=== PATIENT | female | born 1960 | race Caucasian/White ===

== ENCOUNTER 2016-09-09 10:44 | Outpatient (CLI) | payer BC | END 2016-09-09 10:45 | disposition home or self-care (01) | DX: M20.11 Hallux valgus (acquired), right foot (principal); M19.071 Primary osteoarthritis, right ankle and foot; M25.571 Pain in right ankle and joints of right foot ==

== ENCOUNTER 2018-04-05 07:58 | Outpatient (CLI) | payer BC ==
[2018-04-05] MEDS ORDERED: IOPAMIDOL-300 100 ML VIAL ONE (08:12)
[2018-04-05] MEDS ORDERED: IOPAMIDOL-300 100 ML VIAL IVP ONE (09:47)
--- NOTE | 2018-04-05 10:31 | CT Report ---
Reason: PULMONARY NODULE Procedure Date: 04/05/2018 Accession Number: [id number] / [id number] Procedure: CT - Chest W/ CPT Code: FULL RESULT: EXAM: CT CHEST EXAM DATE: 04/05/2018 08:53 AM. CLINICAL HISTORY: Follow up pulmonary nodule. COMPARISONS: CHEST W/ 04/19/2016. TECHNIQUE: Routine helical CT imaging was performed through the chest. IV contrast: 80 mL Isovue 300. Reconstructions: Coronal and sagittal. In accordance with CT protocol optimization, one or more of the following dose reduction techniques were utilized for this exam: automated exposure control, adjustment of mA and/or KV based on patient size, or use of iterative reconstructive technique. FINDINGS: Lungs/Pleura: The irregular and spiculated left upper lobe mixed groundglass and solid lesion is 3 cm x 2.6 cm measuring along the longest points of the solid component with a surrounding groundglass halo, highly suspicious. There is questionable pleural involvement versus pleural distortion from associated scarring. No new nodules, bronchial thickening, consolidation, or edema. Pulmonary vasculature is normal. No pericardial or pleural effusion. No pneumothorax. Mediastinum: Normal. No adenopathy or masses. The heart and great vessels are normal. Bones: No aggressive osseous lesion. Visualized Abdomen: Heterogeneously partially peripherally enhancing right hepatic dome mass, essentially unchanged compared to 2016 most likely represents a hemangioma but is not fully characterized on this examination. Status post cholecystectomy. Other: A partially cystic left thyroid nodule is again seen, at least 2.6 x 2.8 cm. IMPRESSION: The suspicious mixed solid and groundglass lesion has progressed from nodule to mass by size criteria. The previous recommendation of biopsy to confirm malignancy versus immediate resection stands. This is cancer until proven otherwise. If benignity of the 2.8 cm left thyroid nodule has not been established, biopsy is warranted. CRITICAL RESULT: The findings were discussed with Sanam Chairez on 04/05/2018 at 10:05 AM. RADIA The above findings were discussed with Sanam Chairez by Dr. Isai Ceballos at 10:17 hrs on 04/05/18.
== END 2018-04-05 07:59 | disposition home or self-care (01) ==
LOC: DI 07:58
PROVIDERS: ATTEND Physician Assistant Medical
DX: C34.12 Malignant neoplasm of upper lobe, left bronchus or lung (principal); E04.1 Nontoxic single thyroid nodule
CPT/HCPCS: 71260; Q9967

== ENCOUNTER 2018-06-12 15:51 | Emergency (ER) | payer BC ==
[2018-06-12 16:23] VITALS: BP 176/89
[2018-06-12] MEDS ORDERED: PROPARACAINE 0.5% OPHTH DROPS 15 ML EACHEYE STA (17:34)
--- NOTE | 2018-06-12 18:02 | ED Physician Documentation ---
PD HPI OPHTHO - Stated complaint Stated Complaint: R EYE INJ - Chief complaint Chief Complaint: Heent - History obtained from History obtained from: Patient - History of Present Illness Timing - onset: Yesterday Timing - duration: Days Timing - details: Abrupt onset Pain level max: 5 Pain level now: 4 Location: Right Quality / character: Burning, Aching Associated symptoms: Redness, Tearing, FB sensation Contributing factors: Blunt trauma (dog nail to the R eye). No: Wears glasses, Wears contacts Similar symptoms before: Has not had sx before Recently seen: Not recently seen Review of Systems Constitutional: denies: Fever, Chills Ears: denies: Ear pain Nose: denies: Rhinorrhea / runny nose, Congestion PD PAST MEDICAL HISTORY - Past Medical History Past Medical History: Yes Cardiovascular: None Respiratory: None Endocrine/Autoimmune: Other GI: Pancreatitis : Kidney stones, Other HEENT: Other Psych: None Musculoskeletal: None Derm: Other Other Past Medical History: Lung cancer - Past Surgical History Past Surgical History: Yes General: Cholecystectomy, Other HEENT: Other - Present Medications Home Medications: Ambulatory Orders Medication Instructions Recorded Confirmed Polymyxin B/Trimeth Ophth Drop 1 drops RIGHTEYE Q3H 7 Days #1 06/12/18 [Polytrim Ophth Drops] bottle - Allergies Allergies/Adverse Reactions: Allergies Allergy/AdvReac Type Severity Reaction Status Date / Time No Known Drug Allergies Allergy Verified 09/09/14 13:31 - Social History Does the pt smoke?: No Smoking Status: Former smoker Does the pt drink ETOH?: Yes Does the pt have substance abuse?: No - POLST Patient has POLST: No PD ED PE NORMAL - Vitals Vital signs reviewed: Yes - General General: Alert and oriented X 3, No acute distress - HEENT HEENT: Moist mucous membranes, Other (R eye - scleral abrasion 5mm medial to the cornea. +fluoroscein uptake. Neg olivia sign. normal pupil) - Neck Neck: Supple, no meningeal sign - Derm Derm: Warm and dry - Neuro Neuro: Alert and oriented X 3 Results - Vitals Vitals: Vital Signs - 24 hr 06/12/18 16:00 Temperature 36.5 C Heart Rate 73 Respiratory 14 Rate Blood Pressure 176/89 H O2 Saturation 100 Oxygen O2 Source Room air PD MEDICAL DECISION MAKING - ED course Complexity details: considered differential, d/w patient ED course: Patient is a 58-year-old female with a right eye scleral abrasion. Does not wear contacts. Tdap given. Will place on ophthalmic antibiotics and follow-up with her doctor. Patient counseled regarding signs and symptoms for which I believe and urgent re-evaluation would be necessary. Patient with good understanding of and agreement to plan and is comfortable going home at this time This document was made in part using voice recognition software. While efforts are made to proofread this document, sound alike and grammatical errors may occur. Departure - Departure Disposition: 01 Home, Self Care Clinical Impression: Corneal abrasion Qualifiers: Encounter type: initial encounter Laterality: right Qualified Code(s): S05.01XA - Injury of conjunctiva and corneal abrasion without foreign body, right eye, initial encounter Condition: Good Instructions: ED Eye Injury Corneal Abrasion Follow-Up: Sanam Chairez PA-C [Primary Care Provider] - Within 1 week Prescriptions: Polymyxin B/Trimeth Ophth Drop [Polytrim Ophth Drops] 1 drops RIGHTEYE Q3H 7 Days #1 bottle Comments: Use the antibiotic drops as prescribed. Return if you worsen. Follow-up with your doctor for repeat examination to ensure it is healing correctly. Discharge Date/Time: 06/12/18 18:14
[2018-06-12] MEDS ORDERED: TETANUS/DIPHTHERIA/PERTUSSIS 0.5 ML SYRINGE IM ONE (18:05)
== END 2018-06-12 18:14 | disposition home or self-care (01) ==
LOC: ED 15:51
DX: S05.01XA Injury of conjunctiva and corneal abrasion without foreign body, right eye, initial encounter (principal); Z23 Encounter for immunization; F17.200 Nicotine dependence, unspecified, uncomplicated; W54.1XXA Struck by dog, initial encounter
CPT/HCPCS: 90471; 90715; 99283; J3490

== ENCOUNTER 2018-11-09 11:44 | Outpatient (CLI) | payer BC | END 2018-11-09 11:45 | disposition critical access hospital (66) | LOC: EMS 11:44 | PROVIDERS: ATTEND Surgery | DX: H51.8 Other specified disorders of binocular movement (principal); R53.1 Weakness | CPT/HCPCS: A0425; A0429 ==

== ENCOUNTER 2018-11-09 11:57 | Emergency (ER) | payer BC, MEDICARE ==
--- NOTE | 2018-11-09 12:43 | ED Physician Documentation ---
PD HPI FOCAL NEURO - Stated complaint Stated Complaint: POSS CVA - Chief complaint Chief Complaint: Neuro - History obtained from History obtained from: Patient - History of Present Illness Timing - onset: How many days ago (3) Timing - duration: Days (3) Timing - details: Gradual onset Severity of deficit: Mild Weakness: Hand, Left Numbness: No: Face, Arm, Hand, Leg, Foot, Right, Left Associated symptoms: Headache (mild), Seizure (today felt her eyes were stuck to the L and her L arm and hand were "cramping"). No: Nausea / vomiting Contributing factors: negative: Anticoagulated, Vascular dz, Atrial fibrillation, Prosthetic heart valve Baseline status: positive: A&OX3, ambulatory, indep - Additional information Additional information: states had lung cancer removed at [facility] in 06/25. Lobectomy performed. States she was told she is cancer free. no chemotherapy. Review of Systems Ten Systems: 10 systems reviewed and negative Constitutional: denies: Fever, Chills Nose: denies: Rhinorrhea / runny nose, Congestion GI: denies: Nausea, Vomiting, Diarrhea Skin: denies: Rash Musculoskeletal: denies: Neck pain, Back pain Neurologic: denies: Headache PD PAST MEDICAL HISTORY - Past Medical History Cardiovascular: None Respiratory: None Endocrine/Autoimmune: Other GI: Pancreatitis : Kidney stones, Other HEENT: Other Psych: None Musculoskeletal: None Derm: Other - Past Surgical History Past Surgical History: Yes General: Cholecystectomy, Other HEENT: Other - Present Medications Home Medications: Ambulatory Orders Medication Instructions Recorded Confirmed Polymyxin B/Trimeth Ophth Drop 1 drops RIGHTEYE Q3H 7 Days #1 06/12/18 [Polytrim Ophth Drops] bottle - Allergies Allergies/Adverse Reactions: Allergies Allergy/AdvReac Type Severity Reaction Status Date / Time No Known Drug Allergies Allergy Verified 09/09/14 13:31 - Social History Does the pt smoke?: No Smoking Status: Former smoker Does the pt drink ETOH?: Yes Does the pt have substance abuse?: No - POLST Patient has POLST: No PD ED PE NORMAL - Vitals Vital signs reviewed: Yes - General General: Alert and oriented X 3, No acute distress, Well developed/nourished - HEENT HEENT: PERRL, Moist mucous membranes - Neck Neck: Supple, no meningeal sign - Cardiac Cardiac: RRR, Strong equal pulses - Respiratory Respiratory: No respiratory distress, Clear bilaterally - Abdomen Abdomen: Soft, Non tender, Non distended - Derm Derm: Warm and dry, No rash - Extremities Extremities: No edema, No calf tenderness / cord - Neuro Neuro: Alert and oriented X 3, No sensory deficit, Other (focal weakness L thumb and index finger.) Eye Opening: Spontaneous Motor: Obeys Commands Verbal: Oriented GCS Score: 15 - Psych Psych: Normal mood, Normal affect NIHSS - Time Time: 12:20 - Level of Consciousness Level of consciousness: (0) Alert, Keenly responsive LOC Questions: (0) Answers both Q's correct LOC Commands: (0) Performs both correctly - Gaze Best Gaze: (0) Normal - Visual Visual: (0) No loss - Facial Palsy Facial Palsy: (0) Normal, symmetrical movement - Motor Arms (both separate) Motor Arm (right): (0) No drift Motor Arm (left): (0) No drift - Motor Legs (both separate) Motor Leg (right): (0) No drift Motor Leg (left): (0) No drift - Limb Ataxia Limb Ataxia: (0) Absent - Sensory Sensory: (0) Normal - Best Language Best Language: (0) No aphasia - Dysarthria Dysarthria: (0) Normal - Extinction and Inattention (formally neg Extinction and inattention: (0) No abnormality - Total Score/Results Total Score/Result: 0 Results - Vitals Vitals: Vital Signs - 24 hr 11/09/18 11/09/18 12:03 13:05 Temperature 36.5 C 36.8 C Heart Rate 72 73 Respiratory 16 18 Rate Blood Pressure 161/104 H 157/97 H O2 Saturation 99 99 Oxygen O2 Source Room air - EKG (time done) 1217 Rate: Rate (enter#) (72) Rhythm: NSR [place]: Normal Intervals: Normal [place] QRS: Normal Ischemia: Normal ST segments Computer interpretation: Agree with computer - Labs Labs: Laboratory Tests 11/09/18 12:37 Urine Color LT. YELLOW Urine Clarity CLEAR Urine pH 6.5 Ur Specific [place] <=1.005 Urine Protein NEGATIVE Urine Glucose (UA) NEGATIVE Urine Ketones NEGATIVE Urine Occult Blood NEGATIVE Urine Nitrite NEGATIVE Urine Bilirubin NEGATIVE Urine Urobilinogen 0.2 (NORMAL) Ur Leukocyte Esterase NEGATIVE Ur Microscopic Review NOT INDICATED Urine Culture Comments NOT INDICATED - Rads (name of study) head CT Radiology: Prelim report reviewed, EMP read contemporaneously, See rad report (1. Multiple bihemispheric mildly hyperattenuating parenchymal masses, the largest of which measures 2 cm in the right frontal lobe, associated with vasogenic edema. Pattern is consistent with metastatic disease. 2. No CT evidence of acute infarction. ) PD MEDICAL DECISION MAKING - ED course Complexity details: reviewed results, re-evaluated patient, considered differential, d/w patient, d/w building consultant ED course: 58 year old female with brain mets on non-con CT. today appears to have had a new onset partial seizure. Given keppra and decadron. Will transfer to [facility] in [place] for further care. D/w 1300 Dr. Bender, hospitalist in [place] who graciously accepts in transfer. COBRAs filled out. Patient stable. This document was made in part using voice recognition software. While efforts are made to proofread this document, sound alike and grammatical errors may occur. Departure - Departure Disposition: 02 Transfer Acute Care Hosp Clinical Impression: Brain metastasis, New onset seizure Condition: Stable
[2018-11-09] MEDS ORDERED: levETIRAcetam INJ 1,000 MG in SODIUM CHLORIDE 0.9% 100ML 100 ML IV STA (12:44)
[2018-11-09] MEDS ORDERED: SODIUM CHLORIDE 0.9% 1,000 ML IV ONE (12:44)
--- NOTE | 2018-11-09 12:44 | CT Report ---
Reason: left sided weakness Procedure Date: 11/09/2018 Accession Number: [id number] / [id number] Procedure: CT - Head W/O Stroke Protocol CPT Code: FULL RESULT: EXAM: CT HEAD EXAM DATE: 11/09/2018 12:24 PM. CLINICAL HISTORY: Left sided weakness. History of lung cancer in June status post lobectomy. COMPARISON: None. TECHNIQUE: Multiaxial CT images were obtained from the foramen magnum to the vertex. Reformats: Sagittal and coronal. IV contrast: None. In accordance with CT protocol optimization, one or more of the following dose reduction techniques were utilized for this exam: automated exposure control, adjustment of mA and/or KV based on patient size, or use of iterative reconstructive technique. FINDINGS: Parenchyma: There is a 2 cm mixed isodense and hypodense mass in the peripheral right frontal lobe, reference image 18 series 3; mass is associated with halo of vasogenic edema. There are additional mildly hyperattenuating parenchymal masses noted of the right hemisphere ranging in size from several mm up to the next largest measuring 13 mm right parafalcine, image 24, series 3. At least 7 total mildly hyperattenuating lesions are noted within the bihemispheric parenchyma. No intraparenchymal hemorrhage. No evidence midline shift, or CT findings of acute infarction. Extraaxial Spaces: Normal for age. No subdural or epidural collections identified. Ventricles: Normal in size and position. Sinuses and Orbits: Imaged paranasal sinuses, orbits, and mastoids show no significant abnormality. Bones: No evidence of fracture or calvarial defect. Other: None. IMPRESSION: 1. Multiple bihemispheric mildly hyperattenuating parenchymal masses, the largest of which measures 2 cm in the right frontal lobe, associated with vasogenic edema. Pattern is consistent with metastatic disease. 2. No CT evidence of acute infarction. RADIA The above critical test findings were discussed with Er Physician Dr. Calixto by Dr. Chay Hill at 12:35 PM on 11/09/2018.
[2018-11-09 12:54] LABS: BILIRUBIN,URINE NEGATIVE (NEGATIVE); GLUCOSE, URINE (UA) NEGATIVE (NEGATIVE); KETONES,URINE (UA) NEGATIVE (NEGATIVE); LEUKOCYTE ESTERASE, URINE NEGATIVE (NEGATIVE); NITRITE,URINE NEGATIVE (NEGATIVE); OCCULT BLOOD,URINE NEGATIVE (NEGATIVE); PH,URINE 6.5 PH (5.0-7.5); PROTEIN,URINE NEGATIVE (NEGATIVE); UROBILINOGEN,URINE 0.2 (NORMAL) E.U./dL (NORMAL)
[2018-11-09] MEDS ORDERED: DEXAMETHASONE 10 MG/ML VIAL IVP STA (12:54)
[2018-11-09 12:59] LABS: CLARITY,URINE CLEAR (CLEAR)
[2018-11-09 13:06] VITALS: BP 157/97
[2018-11-09 13:22] LABS: ALBUMIN 4.4 g/dL (3.2-5.5); ALBUMIN/GLOBULIN RATIO 1.3 (1.0-2.2); BILIRUBIN,TOTAL 0.6 mg/dL (0.2-1.0); CALCIUM 9.6 mg/dL (8.5-10.3); CREATININE 0.5 mg/dL (0.4-1.0); MAGNESIUM 2.5 mg/dL (1.7-2.8); PHOSPHORUS 3.2 mg/dL (2.5-4.6); TOTAL PROTEIN 7.7 g/dL (6.7-8.2)
[2018-11-09 13:23] LABS: BASOPHILS # (AUTO) 0.1 10^3/uL (0.0-0.1); BASOPHILS % (AUTO) 1.3 %; EOSINOPHILS # (AUTO) 0.1 10^3/uL (0.0-0.7); HGB - HEMOGLOBIN 14.3 g/dL (12.0-16.0); LYMPHOCYTES # (AUTO) 1.7 10^3/uL (1.5-3.5); LYMPHOCYTES % (AUTO) 31.6 %; MEAN CORPUSCULAR HEMOGLOBIN 30.7 pg (27.0-31.0); MEAN CORPUSCULAR HGB CONC 33.2 g/dL (32.0-36.0); MEAN CORPUSCULAR VOLUME 92.4 fL (81.0-99.0); MEAN PLATELET VOLUME 9.7 fL (7.9-10.8); MONOCYTES # (AUTO) 0.3 10^3/uL (0.0-1.0); MONOCYTES % (AUTO) 6.3 %; NEUTROPHILS # (AUTO) 3.2 10^3/uL (1.5-6.6); NEUTROPHILS % (AUTO) 59.8 %; PLT - PLATELET COUNT 215 10^3/uL (130-450); RED BLOOD COUNT 4.67 10^6/uL (4.20-5.40); RED CELL DISTRIBUTION WIDTH 13.5 % (12.0-15.0); WHITE BLOOD COUNT 5.3 x10^3/uL (4.8-10.8)
[2018-11-09 13:35] LABS: RBC MORPHOLOGY (MULTIPLE) 1+ ANISOCYTOSIS (NORMAL)
== END 2018-11-09 14:28 | disposition short-term general hospital (02) ==
LOC: EDUNIT# → EDBD → ED 11:57
DX: C79.31 Secondary malignant neoplasm of brain (principal); R56.9 Unspecified convulsions; Z85.118 Personal history of other malignant neoplasm of bronchus and lung; Z90.2 Acquired absence of lung [part of]
CPT/HCPCS: 36415; 70450; 80053; 81001; 81003; 83690; 83735; 84100; 85025; 87086; 93005; 96361; 96365; 96375; 99284; 99285

== ENCOUNTER 2018-11-09 14:28 | Outpatient (CLI) | payer BC | END 2018-11-09 14:29 | disposition short-term general hospital (02) | LOC: EMS 14:28 | PROVIDERS: ATTEND Surgery | DX: R56.9 Unspecified convulsions (principal); C79.31 Secondary malignant neoplasm of brain | CPT/HCPCS: A0425; A0426 ==

== ENCOUNTER 2018-12-19 19:57 | Emergency (ER) | payer BC ==
[2018-12-19 20:52] LABS: BASOPHILS % (AUTO) 0.7 %; EOSINOPHILS # (AUTO) 0.1 10^3/uL (0.0-0.7); EOSINOPHILS % (AUTO) 1.8 %; HGB - HEMOGLOBIN 13.8 g/dL (12.0-16.0); LYMPHOCYTES # (AUTO) 1.4 10^3/uL (1.5-3.5); LYMPHOCYTES % (AUTO) 23.6 %; MEAN CORPUSCULAR HEMOGLOBIN 30.5 pg (27.0-31.0); MEAN CORPUSCULAR HGB CONC 32.1 g/dL (32.0-36.0); MEAN CORPUSCULAR VOLUME 95.3 fL (81.0-99.0); MEAN PLATELET VOLUME 7.7 fL (7.9-10.8); MONOCYTES # (AUTO) 0.4 10^3/uL (0.0-1.0); MONOCYTES % (AUTO) 6.5 %; NEUTROPHILS % (AUTO) 67.4 %; PLT - PLATELET COUNT 250 10^3/uL (130-450); RED BLOOD COUNT 4.52 10^6/uL (4.20-5.40); RED CELL DISTRIBUTION WIDTH 15.8 % (12.0-15.0); WHITE BLOOD COUNT 5.9 x10^3/uL (4.8-10.8)
[2018-12-19] MEDS ORDERED: ACETAMINOPHEN 325 MG TABLET PO STA (21:18)
[2018-12-19 21:20] LABS: ALBUMIN 3.8 g/dL (3.2-5.5); ALBUMIN/GLOBULIN RATIO 1.5 (1.0-2.2); BILIRUBIN,TOTAL 0.7 mg/dL (0.2-1.0); CALCIUM 8.9 mg/dL (8.5-10.3); CREATININE 0.7 mg/dL (0.4-1.0); TOTAL PROTEIN 6.3 g/dL (6.7-8.2)
--- NOTE | 2018-12-19 21:48 | CT Report ---
Reason: Left upper extremity weakness, slurred speech Procedure Date: 12/19/2018 Accession Number: [id number] / [id number] Procedure: CT - HEAD WO CPT Code: FULL RESULT: EXAM: CT HEAD EXAM DATE: 12/19/2018 09:33 PM. CLINICAL HISTORY: Left upper extremity weakness, slurred speech. COMPARISON: HEAD W/O STROKE PROTOCOL 11/09/2018 12:01 PM. TECHNIQUE: Multiaxial CT images were obtained from the foramen magnum to the vertex. Reformats: Sagittal and coronal. IV contrast: None. In accordance with CT protocol optimization, one or more of the following dose reduction techniques were utilized for this exam: automated exposure control, adjustment of mA and/or KV based on patient size, or use of iterative reconstructive technique. FINDINGS: Parenchyma: Interval increase in size of a right frontal intraparenchymal lesion, measuring 3.1 cm with perilesional edema. Findings compared with prior CT dated 11/09/2018. There is mild mass-effect on adjacent parenchyma, however no midline shift. A hyperdense, likely intraparenchymal focal lesion is seen in medial high frontal lobe measuring 9 mm (image 26 and series 3), unchanged since prior. No other obvious intracranial lesion seen. Further evaluation to be considered on MRI brain. No intraparenchymal hemorrhage. No midline shift, or CT findings of infarction. Alexander-white differentiation is distinct. Extraaxial Spaces: Normal for age. No subdural or epidural collections identified. Ventricles: Normal in size and position. Sinuses and Orbits: Imaged paranasal sinuses, orbits, and mastoids show no significant abnormality. Bones: No evidence of fracture or calvarial defect. Other: None. IMPRESSION: Interval increase in size of a right frontal intraparenchymal lesion, measuring 3.1 cm with increased perilesional edema. Findings compared with prior CT dated 11/09/2018. Mild mass-effect on the parenchyma, however no midline shift. No obvious intraparenchymal hemorrhage, however mild intratumoral hemorrhage is not excluded. A second hyperdense, likely intraparenchymal focal lesion in medial right frontal lobe, without significant change. Further evaluation to be considered on MRI brain with contrast. RADIA The call report notification system was initiated by Dr. Iraida Tong at 09:39 PM on 12/19/2018. The above call report findings were discussed with Elda Arguello by Dr. Iraida Tong at 09:46 PM on 12/19/2018.
[2018-12-19] MEDS ORDERED: DEXAMETHASONE 10 MG/ML VIAL IVP STA (21:55)
--- NOTE | 2018-12-19 22:30 | ED Physician Documentation ---
PD HPI FOCAL NEURO - Stated complaint Stated Complaint: LOSSING FUNCTION OF LEFT ARM - Chief complaint Chief Complaint: Neuro - History obtained from History obtained from: Patient, Friend - History of Present Illness Timing - onset: Enter time (14:00 today) Timing - duration: Hours Timing - details: Abrupt onset Severity of deficit: Severe Weakness: Arm, Hand (weakness) Associated symptoms: Headache. No: Nausea / vomiting, Seizure, Syncope, Fall, Head injury, Chest pain, Neck pain, Back pain, Fever Contributing factors: positive: Other (Pt with known hx of metastatic lung cancer with mets to brain. Had received radiation in the past since done with that. Takes keppra and 2mg of decadron, has been tapering steroids but today had sudden worsening of her old symptoms. She had previously regained complete function of the LUE. This occurred while eating a burger, noticed she was struggling.). negative: Anticoagulated Similar symptoms before: Diagnosis, Work up / diagnostics, Treatment (received radiation, steroids, keppra) - Treatment prior to arrival Treatment prior to arrival: none Review of Systems Ten Systems: 10 systems reviewed and negative Constitutional: denies: Fever, Chills Eyes: denies: Loss of vision, Decreased vision, Photophobia Cardiac: denies: Chest pain / pressure Respiratory: denies: Dyspnea GI: denies: Nausea, Vomiting Musculoskeletal: denies: Neck pain Neurologic: reports: Focal weakness, Difficulty speaking, Headache. denies: Numbness, Near syncope, Seizure, Confused, Altered mental status, Head injury, LOC PD PAST MEDICAL HISTORY - Past Medical History Past Medical History: Yes Cardiovascular: None Respiratory: None Neuro: None, Seizure disorder Endocrine/Autoimmune: Other GI: Pancreatitis SCARRER: None : Kidney stones, Other HEENT: Other Psych: None Musculoskeletal: None Derm: Other Other Past Medical History: brain ca - Past Surgical History Past Surgical History: Yes General: Cholecystectomy, Other Neuro: Other HEENT: Other - Present Medications Home Medications: Ambulatory Orders Medication Instructions Recorded Confirmed Dexamethasone 2 mg PO DAILY 12/19/18 12/19/18 Levetiracetam [Keppra] 500 mg PO BID 12/19/18 12/19/18 - Allergies Allergies/Adverse Reactions: Allergies Allergy/AdvReac Type Severity Reaction Status Date / Time No Known Drug Allergies Allergy Verified 12/19/18 20:04 - Social History Does the pt smoke?: No Smoking Status: Never smoker Does the pt drink ETOH?: Yes Does the pt have substance abuse?: No - Immunizations Immunizations are current?: Yes - POLST Patient has POLST: No PD ED PE NORMAL - Vitals Vital signs reviewed: Yes - General General: Alert and oriented X 3, No acute distress - HEENT HEENT: Atraumatic, PERRL, EOMI - Neck Neck: Supple, no meningeal sign - Cardiac Cardiac: RRR, No gallop - Respiratory Respiratory: No respiratory distress - Abdomen Abdomen: Soft, Non tender, Non distended - Female Female : Deferred - Rectal Rectal: Deferred - Derm Derm: Normal color, Warm and dry, No rash - Extremities Extremities: No deformity - Neuro Neuro: Alert and oriented X 3 Eye Opening: Spontaneous Motor: Obeys Commands Verbal: Oriented GCS Score: 15 - Free text exam Free text exam: CN II-XII intact except for shoulder shrug, no dysmetria, reports difficulty speaking but no dysarthria or aphasia evident. LUE 3/5 strength. Results - Vitals Vitals: Vital Signs - 24 hr 12/19/18 12/19/18 12/19/18 20:01 20:57 21:04 Temperature 36.0 C L Heart Rate 92 83 81 Respiratory 14 17 15 Rate Blood Pressure 151/121 H 143/91 H 144/90 H O2 Saturation 99 100 99 12/19/18 12/19/18 12/19/18 21:34 22:30 23:13 Temperature Heart Rate 77 80 82 Respiratory 15 13 18 Rate Blood Pressure 157/94 H 134/89 H 156/99 H O2 Saturation 99 97 97 Oxygen O2 Source Room air - Labs Labs: Laboratory Tests 12/19/18 12/19/18 20:35 21:04 WBC 5.9 RBC 4.52 Hgb 13.8 Hct 43.0 MCV 95.3 MCH 30.5 MCHC 32.1 RDW 15.8 H Plt Count 250 MPV 7.7 L Neut # (Auto) 4.0 Lymph # (Auto) 1.4 L Bertie # (Auto) 0.4 Eos # (Auto) 0.1 Baso # (Auto) 0.0 Absolute Nucleated RBC 0.01 Nucleated RBC % 0.1 Sodium 141 Potassium 3.3 L Chloride 103 Carbon Dioxide 24 Anion Gap 14.0 H BUN 17 Creatinine 0.7 Estimated GFR (MDRD) 86 L Glucose 86 Calcium 8.9 Total Bilirubin 0.7 AST 24 ALT 28 Alkaline Phosphatase 49 Total Protein 6.3 L Albumin 3.8 Globulin 2.5 Albumin/Globulin Ratio 1.5 Lipase 35 - Rads (name of study) No standard instances Radiology: Final report received, Critical result (vasogenic edema surrounding brain mass increased in size) PD MEDICAL DECISION MAKING - ED course ED course: 58 y/o F with hx of metastatic lung CA with hx of brain mets, today with sudden onset of worsening L Upper extremity weakness, unable to lift left arm, also difficulty with speech worse than normal. 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 Stable vitals. CT head shows no bleed but vasogenic edema worse and increasing mass size, given decadron IV 10mg here. Discussed with Dr. hCau who agrees with plan to transfer for admission to where pt receives her cancer care. Will transfer by ground ALS given potential for deterioration and requiring airway intervention if worsening edema or even bleeding. Departure - Departure Disposition: 02 Transfer Acute Care Hosp Clinical Impression: Cerebral edema, Brain metastases, Neurological deficit present Condition: Fair Record reviewed to determine appropriate education?: Yes Discharge Date/Time: 12/19/18 22:27
[2018-12-19 23:13] VITALS: BP 156/99
== END 2018-12-20 01:10 | disposition short-term general hospital (02) ==
LOC: ED 19:57
DX: C79.31 Secondary malignant neoplasm of brain (principal); C34.90 Malignant neoplasm of unspecified part of unspecified bronchus or lung; G93.6 Cerebral edema; R29.818 Other symptoms and signs involving the nervous system; G40.909 Epilepsy, unspecified, not intractable, without status epilepticus
CPT/HCPCS: 36415; 70450; 80053; 83690; 85025; 96374; 99284; 99285; A9270; 80048; 99283

== ENCOUNTER 2019-06-05 09:04 | Emergency (ER) | payer BC ==
[2019-06-05] MEDS ORDERED: DEXAMETHASONE 10 MG/ML VIAL IVP STA ×2 (10:01→14:01)
[2019-06-05] MEDS ORDERED: SODIUM CHLORIDE 0.9% 1,000 ML IV ONE ×3 (10:01→12:14)
[2019-06-05] MEDS ORDERED: levETIRAcetam 250 MG TABLET PO STA (10:01)
--- NOTE | 2019-06-05 10:05 | ED Physician Documentation ---
PD HPI HEADACHE - Stated complaint Stated Complaint: CUEVAS/MED REACTION - Chief complaint Chief Complaint: Neuro - History obtained from History obtained from: Patient, Family - History of Present Illness Timing - onset: How many weeks ago (2) Timing - onset during: Rest Timing - duration: Weeks (2) Timing - details: Gradual onset, Still present Location: Global Quality: Throbbing Associated symptoms: Nausea, Weakness, Vision changes. No: Fever, Stiff neck, Vomiting Improved by: Rest Worsened by: Light, Noise, Moving Contributing factors: Other (vempax started 2 weeks ago) Similar symptoms before: Diagnosis (brain mets with edema) Recently seen: Clinic - Additional information Additional information: 59-year-old female with a lung cancer that has metastasized to the brain has had seizure disorder now for 7 months she has been on some Keppra and she is recently started on them fax.She has developed symptoms of headache nausea elevated blood pressure ataxia and blurred vision.She has a reduced oral intake of fluids secondary to the nausea. Review of Systems Constitutional: denies: Fever Eyes: reports: Other (double vision). denies: Decreased vision Ears: denies: Ear pain Nose: denies: Rhinorrhea / runny nose, Congestion Throat: denies: Sore throat Cardiac: denies: Chest pain / pressure, Palpitations Respiratory: denies: Dyspnea, Cough GI: reports: Nausea. denies: Abdominal Pain, Vomiting : denies: Dysuria, Frequency Skin: denies: Rash Musculoskeletal: denies: Neck pain, Back pain, Extremity pain Neurologic: reports: Generalized weakness. 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 : Kidney stones, Other HEENT: Other Psych: None Musculoskeletal: None Derm: Other - Past Surgical History Past Surgical History: Yes General: Cholecystectomy, Other Neuro: Other HEENT: Other - Present Medications Home Medications: Ambulatory Orders Medication Instructions Recorded Confirmed Dexamethasone 2 mg PO DAILY 12/19/18 06/05/19 Levetiracetam [Keppra] 1,000 mg PO BID 12/19/18 06/05/19 Lacosamide [Vimpat] 100 mg PO BID 06/05/19 06/05/19 Lisinopril 20 mg PO DAILY 06/05/19 06/05/19 Pantoprazole [Protonix] 40 mg PO DAILY 06/05/19 06/05/19 - Allergies Allergies/Adverse Reactions: Allergies Allergy/AdvReac Type Severity Reaction Status Date / Time No Known Drug Allergies Allergy Verified 06/05/19 09:37 - Social History Does the pt smoke?: No Smoking Status: Never smoker Does the pt drink ETOH?: Yes Does the pt have substance abuse?: No - Immunizations Immunizations are current?: Yes - POLST Patient has POLST: No PD ED PE NORMAL - Vitals Vital signs reviewed: Yes (hypertensive ) - General General: Alert and oriented X 3, Well developed/nourished - HEENT HEENT: Atraumatic, PERRL, EOMI, Other (mild inflamation to the right TM along the umbo only. 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, No motor deficit, No sensory deficit, Normal speech Eye Opening: Spontaneous Motor: Obeys Commands Verbal: Oriented GCS Score: 15 - Psych Psych: Normal mood, Normal affect Results - Vitals Vitals: Vital Signs - 24 hr 06/05/19 06/05/19 06/05/19 09:15 09:38 10:25 Temperature 37 C Heart Rate 94 81 73 Respiratory 18 18 18 Rate Blood Pressure 150/110 H 153/94 H 152/92 H O2 Saturation 94 98 97 06/05/19 06/05/19 06/05/19 10:51 11:54 13:54 Temperature Heart Rate 82 90 77 Respiratory 18 18 18 Rate Blood Pressure 141/89 H 141/92 H 165/96 H O2 Saturation 99 97 99 Oxygen O2 Source Room air - Labs Labs: Laboratory Tests 06/05/19 06/05/19 06/05/19 10:16 10:16 12:02 WBC 6.7 RBC 5.06 Hgb 15.0 Hct 48.1 H MCV 95.1 MCH 29.6 MCHC 31.2 L RDW 13.2 Plt Count 197 MPV 10.1 Neut # (Auto) 4.1 Lymph # (Auto) 1.9 [place] # (Auto) 0.5 Eos # (Auto) 0.1 Baso # (Auto) 0.1 Absolute Nucleated RBC 0.00 Nucleated RBC % 0.0 Sodium 139 Potassium 3.4 L Chloride 103 Carbon Dioxide 27 Anion Gap 9.0 BUN 15 Creatinine 0.7 Estimated GFR (MDRD) 86 L Glucose 96 Calcium 10.0 Total Bilirubin 0.7 AST 19 ALT 25 Alkaline Phosphatase 47 Total Protein 6.6 L Albumin 3.9 Globulin 2.7 Albumin/Globulin Ratio 1.4 Lipase 33 Urine Color YELLOW Urine Clarity CLEAR Urine pH 6.0 Ur Specific [place] <=1.005 Urine Protein NEGATIVE Urine Glucose (UA) NEGATIVE Urine Ketones NEGATIVE Urine Occult Blood NEGATIVE Urine Nitrite NEGATIVE Urine Bilirubin NEGATIVE Urine Urobilinogen 0.2 (NORMAL) Ur Leukocyte Esterase NEGATIVE Ur Microscopic Review NOT INDICATED Urine Culture Comments NOT INDICATED - Rads (name of study) CT head without Radiology: Prelim report reviewed (Impression: 1. New extensive area of low attenuation involving the right cerebellar hemisphere with associated mass- effect concerning for lesion possibly metastatic considering the patient's history with associated edema new compared to 12/19/2018. 2 Extensive region of right frontal low-attenuation more prominent compared to 12/19/2018 which may be due to progression of disease or posttreatment related.), EMP read indepedently, See rad report Procedures - IVC sono (time) 1000 Bedside IVC sono: IVC measures (cm) (0.87), IVC collapsed c insp (cm) (complete), Dehydration (est 2 liters deficit) PD MEDICAL DECISION MAKING - ED course Complexity details: reviewed results, re-evaluated patient, considered differential, d/w patient, d/w family ED course: 59-year-old female with a history of lung cancer with metastases to the brain has had radiation therapy and has developed seizure disorder and she is on higher and higher doses of her antiepileptic medications. She has now developed ataxia and dizziness that she believes may be related to a new medication she is taking. She is found to be dehydrated on interrogation the inferior vena cava and she is given saline. She continues to have symptoms and a CT scan of the head is obtained demonstrating a new cerebellar tumor with surrounding edema. Dr. Curtis at the [facility] is consulted in the case and recommends an additional 4 mg of dexamethasone and the patient has an appointment to see them tomorrow. The patient has a partner who is attentive and will be able to be with the patient to be certain she is able to make it to and from the bathroom without falling. Departure - Departure Disposition: 01 Home, Self Care Clinical Impression: Brain metastasis, Cerebellar edema, Dehydration Condition: Stable Instructions: ED Brain Tumor, ED Dehydration Follow-Up: Your, doctor at the [facility] [Other]
[2019-06-05 10:24] LABS: BASOPHILS # (AUTO) 0.1 10^3/uL (0.0-0.1); BASOPHILS % (AUTO) 0.9 %; EOSINOPHILS # (AUTO) 0.1 10^3/uL (0.0-0.7); EOSINOPHILS % (AUTO) 1.2 %; LYMPHOCYTES # (AUTO) 1.9 10^3/uL (1.5-3.5); LYMPHOCYTES % (AUTO) 28.9 %; MEAN CORPUSCULAR HEMOGLOBIN 29.6 pg (27.0-31.0); MEAN CORPUSCULAR HGB CONC 31.2 g/dL (32.0-36.0); MEAN CORPUSCULAR VOLUME 95.1 fL (81.0-99.0); MEAN PLATELET VOLUME 10.1 fL (7.9-10.8); MONOCYTES # (AUTO) 0.5 10^3/uL (0.0-1.0); MONOCYTES % (AUTO) 7.4 %; NEUTROPHILS # (AUTO) 4.1 10^3/uL (1.5-6.6); NEUTROPHILS % (AUTO) 61.2 %; PLT - PLATELET COUNT 197 10^3/uL (130-450); RED BLOOD COUNT 5.06 10^6/uL (4.20-5.40); RED CELL DISTRIBUTION WIDTH 13.2 % (12.0-15.0); WHITE BLOOD COUNT 6.7 x10^3/uL (4.8-10.8)
[2019-06-05] MEDS ORDERED: PANTOPRAZOLE 40 MG TABLET PO STA (10:36)
[2019-06-05 10:45] LABS: ALBUMIN 3.9 g/dL (3.2-5.5); ALBUMIN/GLOBULIN RATIO 1.4 (1.0-2.2); BILIRUBIN,TOTAL 0.7 mg/dL (0.2-1.0); CREATININE 0.7 mg/dL (0.4-1.0); TOTAL PROTEIN 6.6 g/dL (6.7-8.2)
[2019-06-05 12:13] LABS: BILIRUBIN,URINE NEGATIVE (NEGATIVE); GLUCOSE, URINE (UA) NEGATIVE (NEGATIVE); KETONES,URINE (UA) NEGATIVE (NEGATIVE); LEUKOCYTE ESTERASE, URINE NEGATIVE (NEGATIVE); NITRITE,URINE NEGATIVE (NEGATIVE); OCCULT BLOOD,URINE NEGATIVE (NEGATIVE); PROTEIN,URINE NEGATIVE (NEGATIVE); UROBILINOGEN,URINE 0.2 (NORMAL) E.U./dL (NORMAL)
[2019-06-05 12:15] LABS: CLARITY,URINE CLEAR (CLEAR)
[2019-06-05] MEDS ORDERED: ACETAMINOPHEN 1,000 MG/100 ML 100 ML IV STA (13:08)
--- NOTE | 2019-06-05 13:51 | CT Report ---
Reason: persistent headache dizziness Procedure Date: 06/05/2019 Accession Number: [id number] / [id number] Procedure: CT - HEAD WO CPT Code: FULL RESULT: EXAM: CT HEAD EXAM DATE: 06/05/2019 01:23 PM. CLINICAL HISTORY: Persistent headache dizziness. History of lung cancer metastases and prior treatment with radiation to intracranial metastases. COMPARISON: HEAD W/O 12/19/2018 9:29 PM. TECHNIQUE: Multiaxial CT images were obtained from the foramen magnum to the vertex. Reformats: Coronal and sagittal. IV contrast: None. In accordance with CT protocol optimization, one or more of the following dose reduction techniques were utilized for this exam: automated exposure control, adjustment of mA and/or KV based on patient size, or use of iterative reconstructive technique. FINDINGS: Parenchyma: New extensive area of edema and low attenuation as well as heterogeneity is seen throughout the right cerebellar hemisphere with associated mass-effect upon the right fourth ventricle and slight right to left midline shift. Area of low attenuation in the right frontal lobe is again seen and overall AP extent measures 4.9 cm and has progressed. Punctate foci of high density along the right frontal lobe along the cephalad area of low attenuation may be posttreatment related rather than hemorrhage. Extraaxial Spaces: Normal for age. No subdural or epidural collections identified. Ventricles: Mass-effect upon the right fourth ventricle. No hydrocephalus. Sinuses and Orbits: Imaged paranasal sinuses, orbits, and mastoids show no significant abnormality. Bones: No evidence of fracture or calvarial defect. Other: Globes and orbits are unremarkable. IMPRESSION: 1. New extensive area of low attenuation involving the right cerebellar hemisphere with associated mass-effect concerning for a lesion possibly metastatic considering patient's history with associated edema new compared to 12/19/2018. 2. Extensive region of right frontal low-attenuation more prominent compared to 12/19/2018 which may be due to progression of disease or posttreatment related RADIA The call report notification system was initiated by Dr. Jacob Oakes at 01:41 PM on 06/05/2019. The above call report findings were discussed with Joaquín Gorman by Dr. Jacob Oakes at 01:45 PM on 06/05/2019.
[2019-06-05 14:12] VITALS: BP 153/97
== END 2019-06-05 14:30 | disposition home or self-care (01) ==
LOC: ED 09:04
DX: C79.31 Secondary malignant neoplasm of brain (principal); G93.6 Cerebral edema; C34.90 Malignant neoplasm of unspecified part of unspecified bronchus or lung; E86.0 Dehydration; G40.909 Epilepsy, unspecified, not intractable, without status epilepticus; Z92.3 Personal history of irradiation
CPT/HCPCS: 36415; 70450; 80053; 81003; 83690; 85025; 96361; 96365; 96375; 96376; 99284; A9270; J0131; 81001; 87086

== ENCOUNTER 2019-06-25 16:23 | Outpatient (CLI) | payer BC | END 2019-06-25 16:24 | disposition critical access hospital (66) | LOC: EMS 16:23 | PROVIDERS: ATTEND Surgery | DX: R10.9 Unspecified abdominal pain (principal); R11.2 Nausea with vomiting, unspecified | CPT/HCPCS: A0425; A0429 ==

== ENCOUNTER 2019-06-25 16:45 | Emergency (ER) | payer BC ==
[2019-06-25] MEDS ORDERED: HYDROmorphone 0.5 MG/0.5 ML SYRINGE IVP STA (17:14)
[2019-06-25] MEDS ORDERED: levETIRAcetam INJ 1,000 MG in SODIUM CHLORIDE 0.9% 100ML 100 ML IV STA (17:14)
[2019-06-25] MEDS ORDERED: HYDROmorphone 1 MG/ML CARPUJECT IVP STA ×5 (17:18→22:23)
[2019-06-25] MEDS ORDERED: SODIUM CHLORIDE 0.9% 1,000 ML IV ONE ×2 (17:33)
--- NOTE | 2019-06-25 17:33 | ED Physician Documentation ---
PD HPI ABD PAIN - Stated complaint Stated Complaint: PANCREATITIS - Chief complaint Chief Complaint: Abd Pain - History obtained from History obtained from: Patient - History of Present Illness Timing - onset: Today (59-year-old woman who about 10 years ago was having trouble with pancreatitis, actually since her then to [facility] where she was diagnosed with pancreas divisum and subsequently had a resection. Was doing well in the interim from a pancreas standpoint but more recently was diagnosed with lung cancer metastatic to brain, not currently getting any active treatment for that. 10 days ago started to have upper abdominal pain and vomiting and went to [facility] was diagnosed with pancreatitis, had a large pseudocyst. She went home 2 days ago pain-free but with a endoscopically placed jejunal tube for feeding in place but she was taking orals. This morning developed severe abdominal pain and vomiting again. Also has not been able to keep down her Keppra and if she is having focal seizures. 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: None : Kidney stones, Other HEENT: Other Psych: None Musculoskeletal: None Derm: Other - Past Surgical History Past Surgical History: Yes General: Cholecystectomy, Other Neuro: Other HEENT: Other - Present Medications Home Medications: Ambulatory Orders Medication Instructions Recorded Confirmed Dexamethasone 2 mg PO DAILY 12/19/18 06/05/19 Levetiracetam [Keppra] 1,000 mg PO BID 12/19/18 06/05/19 Lacosamide [Vimpat] 100 mg PO BID 06/05/19 06/05/19 Lisinopril 20 mg PO DAILY 06/05/19 06/05/19 Pantoprazole [Protonix] 40 mg PO DAILY 06/05/19 06/05/19 Oxycodone HCl 0.5 ml PO Q2H PRN #30 ml 06/25/19 - Allergies Allergies/Adverse Reactions: Allergies Allergy/AdvReac Type Severity Reaction Status Date / Time No Known Drug Allergies Allergy Verified 06/05/19 09:37 - Social History Does the pt smoke?: No Smoking Status: Never smoker Does the pt drink ETOH?: Yes Does the pt have substance abuse?: No - Immunizations Immunizations are current?: Yes - POLST Patient has POLST: No PD ED PE NORMAL - Vitals Vital signs reviewed: Yes - General General: Alert and oriented X 3, No acute distress - HEENT HEENT: PERRL, EOMI - Neck Neck: Supple, no meningeal sign, No bony TTP - Cardiac Cardiac: No murmur, Other (tachy) - Respiratory Respiratory: No respiratory distress, Clear bilaterally - Abdomen Abdomen: Other (quite tender upper abd, diminished bowel tones) - Back Back: No CVA TTP, No spinal TTP - Derm Derm: Normal color, Warm and dry - Extremities Extremities: No edema, No calf tenderness / cord - Neuro Neuro: Alert and oriented X 3, Normal speech Results - Vitals Vitals: Vital Signs - 24 hr 06/25/19 06/25/19 06/25/19 16:53 18:03 19:10 Temperature 36.6 C Heart Rate 119 H 120 H 107 H Respiratory 18 14 15 Rate Blood Pressure 105/68 104/73 94/62 O2 Saturation 91 L 96 94 06/25/19 06/25/19 20:30 22:13 Temperature Heart Rate 100 108 H Respiratory 16 16 Rate Blood Pressure 100/73 124/88 H O2 Saturation 95 94 Oxygen O2 Source Room air - Labs Labs: Laboratory Tests 06/25/19 06/25/19 06/25/19 18:00 18:00 18:00 WBC 27.0 H RBC 4.87 Hgb 14.4 Hct 44.1 MCV 90.6 MCH 29.6 MCHC 32.7 RDW 13.8 Plt Count 473 H MPV 9.3 Neut # (Auto) Not Reportable Lymph # (Auto) Not Reportable [place] # (Auto) Not Reportable Eos # (Auto) Not Reportable Baso # (Auto) Not Reportable Absolute Nucleated RBC Not Reportable Total Counted 100 Band Neuts % (Manual) 12 H Abnorm Lymph % (Manual) 0 Metamyelocytes % 2 H Nucleated RBC % Not Reportable Neutrophils # (Manual) 24.8 H Lymphocytes # (Manual) 0.3 L Monocytes # (Manual) 0.8 Eosinophils # (Manual) 0.5 Basophils # (Manual) 0.0 Differential Comment MANUAL DIFFERENTIAL WBC Morphology 1+ SMUDGE CELLS Platelet Estimate INCREASED (>450,000) Platelet Morphology NORMAL APPEARANCE RBC Morph Micro Appear NORMAL APPEARANCE Sodium 133 L Potassium 3.8 Chloride 95 L Carbon Dioxide 26 Anion Gap 12.0 BUN 22 H Creatinine 0.5 Estimated GFR (MDRD) 126 Glucose 96 Lactic Acid 1.3 Calcium 8.0 L Total Bilirubin 0.9 AST 30 ALT 63 H Alkaline Phosphatase 160 H Total Protein 5.2 L Albumin 1.9 L Globulin 3.3 Albumin/Globulin Ratio 0.6 L Lipase 257 H - Rads (name of study) CT A/P Radiology: EMP read contemporaneously (See formal verbose read, Simply said, increasing pancreatic pseudocyst, pleural effusions and anasarca, small intra- abdominal abscesses.) PD MEDICAL DECISION MAKING - ED course ED course: This is a 59-year-old woman with metastatic lung cancer, recurrent pancreatitis now with large pseudocyst. She was released from [facility] 2 days ago, it sounds like it was at her behest because she wanted to go home. Now with worsening pain and found to have sepsis physiology with a white blood cell count of 27,000 and a left shift. Also worsening pseudocyst, anasarca, and intra-abdominal abscesses. This was discussed at length with the patient, her family, and her . She understands the gravity of this and offered transfer back to the [facility] for definitive treatment and IV antibiotics. They declined. She wants to go home. She understands that her prognosis is likely terminal and th at she may just have days to live. I spoke with Dr. Arguello for hospice and they will try to enroll her tomorrow. He wanted her to have a fentanyl patch and agreed with the 100 mcg dosing. In the interim, she also received some extra oxycodone to go home with for breakthrough pain. Note that no sepsis benchmarks were reached because of the decision to pursue hospice care. Departure - Departure Disposition: 01 Home, Self Care Clinical Impression: Brain metastasis, Pancreatic pseudocyst, Intra-abdominal abscess, Hospice care Sepsis Qualifiers: Sepsis type: sepsis due to unspecified organism Sepsis acute organ dysfunction status: with acute organ dysfunction Severe sepsis acute organ dysfunction type: encephalopathy Severe sepsis shock status: with septic shock Qualified Code(s): A41.9 - Sepsis, unspecified organism; R65.21 - Severe sepsis with septic shock; G93.40 - Encephalopathy, unspecified Condition: Good Record reviewed to determine appropriate education?: Yes Instructions: Hospice Start, Hospice Pain Management Prescriptions: Oxycodone HCl 0.5 ml PO Q2H PRN #30 ml PRN Reason: Pain Comments: Dr. Arguello should be reaching out or visiting you tomorrow, I am also available, my phone number is [phone]. Call any time. Return if symptoms are uncontrolled, but hospice should be able to get to settle tomorrow.
[2019-06-25] MEDS ORDERED: IOVERSOL 320 100 ML VIAL IVP ONE ×2 (17:34→21:10)
[2019-06-25 18:10] LABS: BASOPHILS % (AUTO) 0.1 %; HGB - HEMOGLOBIN 14.4 g/dL (12.0-16.0); LYMPHOCYTES % (AUTO) 2.3 %; MEAN CORPUSCULAR HEMOGLOBIN 29.6 pg (27.0-31.0); MEAN CORPUSCULAR HGB CONC 32.7 g/dL (32.0-36.0); MEAN CORPUSCULAR VOLUME 90.6 fL (81.0-99.0); MEAN PLATELET VOLUME 9.3 fL (7.9-10.8); MONOCYTES % (AUTO) 1.7 %; NEUTROPHILS % (AUTO) 93.8 %; PLT - PLATELET COUNT 473 10^3/uL (130-450); RED BLOOD COUNT 4.87 10^6/uL (4.20-5.40); RED CELL DISTRIBUTION WIDTH 13.8 % (12.0-15.0)
[2019-06-25 18:12] LABS: ABNORMAL LYMPHS % (MANUAL) 0 %
[2019-06-25] MEDS ORDERED: DEXAMETHASONE 10 MG/ML VIAL IVP STA (18:12)
[2019-06-25 18:28] LABS: ALBUMIN 1.9 g/dL (3.2-5.5); ALBUMIN/GLOBULIN RATIO 0.6 (1.0-2.2); BILIRUBIN,TOTAL 0.9 mg/dL (0.2-1.0); CREATININE 0.5 mg/dL (0.4-1.0); TOTAL PROTEIN 5.2 g/dL (6.7-8.2)
[2019-06-25 19:27] LABS: BAND NEUTROPHILS % (MANUAL) 12 %; EOSINOPHILS # (MANUAL) 0.5 10^3/uL (0-0.7); LYMPHOCYTES # (MANUAL) 0.3 10^3/uL (1.5-3.5); LYMPHOCYTES % (MANUAL) 1 %; METAMYELOCYTES % (MANUAL) 2 %; MONOCYTES # (MANUAL) 0.8 10^3/uL (0.0-1.0)
[2019-06-25 19:28] LABS: DIFFERENTIAL COMMENT MANUAL DIFFERENTIAL; PLATELET ESTIMATE, MANUAL INCREASED (>450,000) (NORMAL); PLATELET MORPHOLOGY NORMAL APPEARANCE (NORMAL); RBC MORPHOLOGY (MULTIPLE) NORMAL APPEARANCE (NORMAL)
--- NOTE | 2019-06-25 21:34 | CT Report ---
Reason: IV only, incerase abd pain pseudocyst Procedure Date: 06/25/2019 Accession Number: [id number] / [id number] Procedure: CT - Abdomen/Pelvis W CPT Code: Final Report FULL RESULT: EXAM: CT ABDOMEN AND PELVIS EXAM DATE: 06/25/2019 08:43 PM. CLINICAL HISTORY: IV only, increase abdominal pain pseudocyst. COMPARISONS: None. TECHNIQUE: Routine helical CT imaging was performed through the abdomen and pelvis. IV contrast: Opti 320 100 mL. Enteric contrast: No. Reconstructions: Coronal and sagittal. In accordance with CT protocol optimization, one or more of the following dose reduction techniques were utilized for this exam: automated exposure control, adjustment of mA and/or KV based on patient size, or use of iterative reconstructive technique. FINDINGS: Lung Bases: Moderately-sized pleural effusions bilaterally associated with adjacent compressive atelectasis. Heart size within normal limits. Liver: No masses. Gallbladder/Bile Ducts: Surgically absent gallbladder. Spleen: Normal. Pancreas: Large multiloculated cystic lesion epicentered in the region of the pancreas with multiple components insinuating into the david hepatis, the lesser peritoneal sac, and the right retroperitoneum. Differential diagnosis includes large pseudocyst or abscess. This lesion is difficult to measure accurately due to its shape. At its largest AP, transverse, and craniocaudal dimensions it measures 4.8, 14, and 17 cm respectively. Normal pancreatic tissue is identified in the region of the tail and posterior uncinate process. More inferiorly there are 2 smaller collections measuring 2.4 x 3.3 cm in axial plane (series #3 image #62) and 3.4 x 3.2 cm (series #3 image #67) with surrounding stranding. Findings concerning for small additional abscesses. Adrenal Glands: Normal. Kidneys: Normal. No masses or hydronephrosis. Peritoneal Cavity/Bowel: Normal caliber of the small bowel without evidence of obstruction. Free fluid and stranding along the ascending colon and the right paracolic gutter. Appendix: Appendix not visualized with certainty. Pelvic Organs: Free fluid in the pelvis. Probable subserosal leiomyomas along the posterior margin of the uterus. Vasculature: No aneurysms or other significant abnormality. Bones: No significant focal osseous lesions. Advanced osteoarthritis of the right hip. Other: Diffuse subcutaneous edema along the bilateral flank and lateral thigh regions. IMPRESSION: 1. Large multiloculated cystic lesion epicentered in the region of the pancreas with multiple components insinuating into the david hepatis, the lesser peritoneal sac, and the right retroperitoneum. Differential diagnosis includes large pseudocyst or abscess. This lesion is difficult to measure accurately due to its shape. At its largest AP, transverse, and craniocaudal dimensions it measures 4.8, 14, and 17 cm respectively. Normal pancreatic tissue is identified in the region of the tail and posterior uncinate process. 2. More inferiorly there are 2 smaller collections measuring 2.4 x 3.3 cm in axial plane (series 3 image 62) and 3.4 x 3.2 cm (series 3 image 67) with surrounding stranding. Findings concerning for small additional abscesses. 3. Moderate amount of free fluid in the pelvis, likely inflammatory. 4. Free fluid and stranding along the ascending colon and the right paracolic gutter. Uncertain if this is secondary to colitis or reactive inflammation from aforementioned processes. 5. Diffuse subcutaneous edema along the bilateral flank and lateral thigh regions. Moderately-sized pleural effusions. Findings consistent with third spacing of fluid. RADIA
[2019-06-25] MEDS ORDERED: fentaNYL 100 MCG PATCH TOP SCH (22:00)
[2019-06-25] MEDS ORDERED: oxyCODONE 10 MG/0.5 ML SYRINGE PO STA (22:08)
[2019-06-25 22:14] VITALS: BP 124/88
== END 2019-06-25 22:45 | disposition home or self-care (01) ==
LOC: EDUNIT# → ED 16:45
DX: A41.9 Sepsis, unspecified organism (principal); R65.21 Severe sepsis with septic shock; G93.41 Metabolic encephalopathy; K65.1 Peritoneal abscess; K86.3 Pseudocyst of pancreas; C34.90 Malignant neoplasm of unspecified part of unspecified bronchus or lung; C79.31 Secondary malignant neoplasm of brain; G40.909 Epilepsy, unspecified, not intractable, without status epilepticus
CPT/HCPCS: 36415; 74177; 80053; 83605; 83690; 85025; 96361; 96365; 96375; 96376; 99285; A9270; J1170; Q9967

== ENCOUNTER 2019-06-25 22:42 | Outpatient (CLI) | payer BC | END 2019-06-25 22:43 | disposition home or self-care (01) | LOC: EMS 22:42 | PROVIDERS: ATTEND Surgery | DX: A41.9 Sepsis, unspecified organism (principal); Z74.01 Bed confinement status | CPT/HCPCS: A0425; A0428 ==